=== PATIENT | male | born 1975 | race Caucasian/White ===

== ENCOUNTER 2019-01-01 11:19 | Emergency (ER) | payer OTHER ==
[2019-01-01] MEDS ORDERED: HYDROCODONE/APAP 10/325 TAB ONE (12:00)
[2019-01-01] MEDS ORDERED: KETOROLAC 30 MG/ML INJ ONE (12:00)
--- NOTE | 2019-01-01 12:03 | ER ---
Nurse's Notes [facility] Name: James Ann Age: 43 yrs Sex: Male : 1975 Arrival Date: 01/01/2019 Time: 11:23 Bed 11 Private MD: Mika De La Cruz Diagnosis: Radiculopathy, cervical region Presentation: 01/01 11:31 Presenting complaint: Patient states: I have been having bad pain in the left side of la1 my neck that radiates to my left elbow. The pain is so bad I cant sleep and havent since . Tried TENS, icy hot, advil, hot bathes. Nothing is helping. Transition of care: patient was not received from another setting of care. Onset of symptoms was January 01, 2019. Risk Assessment: Do you want to hurt yourself or someone else? Patient reports no desire to harm self or others. Initial Sepsis Screen: Does the patient meet any 2 criteria? No. Patient's initial sepsis screen is negative. Does the patient have a suspected source of infection? No. Patient's initial sepsis screen is negative. Care prior to arrival: None. 11:31 Method Of Arrival: Ambulatory la1 11:31 Acuity: SHAYY 4 la1 Historical: - Allergies: 11:32 No Known Allergies; la1 - PMHx: 11:32 None; la1 - Immunization history:: Adult Immunizations up to date. - Social history:: Smoking status: Patient uses tobacco products, smokes one pack cigarettes per day. - Ebola Screening: : No symptoms or risks identified at this time. Screenin:40 Abuse screen: Denies threats or abuse. Nutritional screening: No deficits noted. la1 Tuberculosis screening: No symptoms or risk factors identified. Fall Risk None identified. Assessment: 11:39 General: Appears in no apparent distress. Behavior is calm, cooperative. Pain: la1 Complains of pain in left posterior neck Pain radiates to left arm. Neuro: Level of Consciousness is awake, alert, obeys commands, Oriented to person, place, time, situation, Gait is steady, Facial symmetry appears normal, Pupils are PERRLA. Cardiovascular: Capillary refill < 3 seconds Patient's skin is warm and dry. GI: No signs and/or symptoms were reported involving the gastrointestinal system. : No signs and/or symptoms were reported regarding the genitourinary system. Vital Signs: 11:32 BP 120 / 80; Pulse 72; Resp 16; Temp 97.1; Pulse Ox 100% on R/A; Weight 136.08 kg; la1 Height 6 ft. 2 in. (187.96 cm); 11:32 Body Mass Index 38.52 (136.08 kg, 187.96 cm) la1 ED Course: 11:23 Patient arrived in ED. dl4 11:23 Mika De La Cruz MD is Private Physician. dl4 11:32 Triage completed. la1 11:32 Arm band placed on left wrist. la1 11:35 [facility]odi Alexandra [facility]C [facility]. kb 11:35 Glen Berg MD is Attending Physician. kb 11:40 Patient has correct armband on for positive identification. la1 12:17 Kobi Sampson RN is Primary Nurse. la1 12:18 No provider procedures requiring assistance completed. Patient did not have IV access la1 during this emergency room visit. Administered Medications: 12:02 Drug: [place] 10 mg-325 mg 1 tabs {Note: RASS= 1.} Route: PO; la1 12:18 Follow up: Response: No adverse reaction; RASS: Alert and Calm (0) la1 12:02 Drug: TORadol 30 mg Route: IM; Site: left gluteus; la1 12:17 Follow up: Response: No adverse reaction la1 Outcome: 12:02 Discharge ordered by MD. kb 12:18 Discharged to home ambulatory. la1 12:18 Condition: stable 12:18 Discharge instructions given to patient, Instructed on discharge instructions, follow up and referral plans. medication usage, Demonstrated understanding of instructions, follow-up care, medications, Prescriptions given X 2. 12:18 Patient left the ED. la1 Signatures: Codi Alexandra FNP-C FNP-Kobi Barreto, RN RN Seun Strong dl4
--- NOTE | 2019-01-01 12:04 | EDPHYS ---
Physician Documentation [facility] Name: James Ann Age: 43 yrs Sex: Male : 1975 Arrival Date: 01/01/2019 Time: 11:23 Bed 11 Private MD: Mika De La Cruz ED Physician Glen Berg HPI: 01/01 11:59 This 43 yrs old Male presents to ER via Ambulatory with complaints of Neck kb and Upper Back Pain. 11:59 The patient or guardian complains of pain, that is acute. The symptoms are located on kb the left posterior aspect of neck. Onset: The symptoms/episode began/occurred 4 day(s) ago. Context: The problem was sustained at work, The neck injury/problem resulted from from unknown cause. Associated signs and symptoms: The patient has no apparent associated signs or symptoms, The patient denies any alcohol use. The patient is not apparently intoxicated. No neurological symptoms were experienced by the patient prior to arrival in the emergency department. The pain radiates to the left arm. Modifying factors: The symptoms are alleviated by nothing. the symptoms are aggravated by movement. Severity of symptoms: At their worst the symptoms were moderate, in the emergency department the symptoms are unchanged. The patient has not experienced similar symptoms in the past. The patient has not recently seen a physician. Historical: - Allergies: 11:32 No Known Allergies; la1 - PMHx: 11:32 None; la1 - Immunization history:: Adult Immunizations up to date. - Social history:: Smoking status: Patient uses tobacco products, smokes one pack cigarettes per day. - Ebola Screening: : No symptoms or risks identified at this time. ROS: 11:58 Constitutional: Negative for fever, chills, and weight loss, Cardiovascular: Negative kb for chest pain, palpitations, and edema, Respiratory: Negative for shortness of breath, cough, wheezing, and pleuritic chest pain, Abdomen/GI: Negative for abdominal pain, nausea, vomiting, diarrhea, and constipation, Back: Negative for injury and pain, : Negative for injury, bleeding, discharge, and swelling, MS/Extremity: Negative for injury and deformity, Skin: Negative for injury, rash, and discoloration, Neuro: Negative for headache, weakness, numbness, tingling, and seizure. 11:58 Neck: Positive for pain with movement, pain at rest, of the left posterior aspect of neck. Exam: 11:58 Constitutional: This is a well developed, well nourished patient who is awake, alert, kb and in no acute distress. Head/Face: Normocephalic, atraumatic. ENT: Nares patent. No nasal discharge, no septal abnormalities noted. Tympanic membranes are normal and external auditory canals are clear. Oropharynx with no redness, swelling, or masses, exudates, or evidence of obstruction, uvula midline. Mucous membranes moist. Chest/axilla: Normal chest wall appearance and motion. Nontender with no deformity. No lesions are appreciated. Cardiovascular: Regular rate and rhythm with a normal S1 and S2. No gallops, murmurs, or rubs. Normal PMI, no JVD. No pulse deficits. Respiratory: Lungs have equal breath sounds bilaterally, clear to auscultation and percussion. No rales, rhonchi or wheezes noted. No increased work of breathing, no retractions or nasal flaring. Abdomen/GI: Soft, non-tender, with normal bowel sounds. No distension or tympany. No guarding or rebound. No evidence of tenderness throughout. Skin: Warm, dry with normal turgor. Normal color with no rashes, no lesions, and no evidence of cellulitis. MS/ Extremity: Pulses equal, no cyanosis. Neurovascular intact. Full, normal range of motion. Neuro: Awake and alert, GCS 15, oriented to person, place, time, and situation. Cranial nerves II-XII grossly intact. Motor strength 5/5 in all extremities. Sensory grossly intact. Cerebellar exam normal. Normal gait. 11:58 Neck: External neck: tenderness, that is mild, of the left posterior aspect of neck, C-spine: appears grossly normal, no vertebral tenderness, no crepitus. Vital Signs: 11:32 BP 120 / 80; Pulse 72; Resp 16; Temp 97.1; Pulse Ox 100% on R/A; Weight 136.08 kg; la1 Height 6 ft. 2 in. (187.96 cm); 11:32 Body Mass Index 38.52 (136.08 kg, 187.96 cm) la1 MDM: 11:44 Patient medically screened. kb 11:57 Data reviewed: vital signs, nurses notes. Data interpreted: Pulse oximetry: on room air kb is 100 %. Interpretation: normal. Counseling: I had a detailed discussion with the patient and/or guardian regarding: the historical points, exam findings, and any diagnostic results supporting the discharge/admit diagnosis, the need for outpatient follow up, a family practitioner, to return to the emergency department if symptoms worsen or persist or if there are any questions or concerns that arise at home. Administered Medications: 12:02 Drug: [place] 10 mg-325 mg 1 tabs {Note: RASS= 1.} Route: PO; la1 12:18 Follow up: Response: No adverse reaction; RASS: Alert and Calm (0) la1 12:02 Drug: TORadol 30 mg Route: IM; Site: left gluteus; la1 12:17 Follow up: Response: No adverse reaction la1 Disposition: 01/02 09:18 Co-signature as Attending Physician, Glen Berg MD I agree with the assessment and prem plan of care. Disposition: 01/01/19 12:02 Discharged to Home. Impression: Radiculopathy, cervical region. - Condition is Stable. - Discharge Instructions: Cervical Radiculopathy, [id number]. - Prescriptions for Prednisone 20 mg Oral Tablet - take 1 tablet by ORAL route once daily for 5 days; 5 tablet. orphenadrine citrate 100 mg Oral Tablet Sustained Release - take 1 tablet by ORAL route 2 times per day As needed; 20 tablet. - Medication Reconciliation Form, Thank You Letter, Antibiotic Education, Prescription Opioid Use form. - Follow up: Emergency Department; When: As needed; Reason: Worsening of condition. Follow up: Private Physician; When: 2 - 3 days; Reason: Recheck today's complaints, Continuance of care, Re-evaluation by your physician. Signatures: Codi Alexandra, BASILIA-C BASILIA-Glen Millan MD MD cha Attema, Lee RN RN la1 Corrections: (The following items were deleted from the chart) 01/01 12:18 12:02 01/01/2019 12:02 Discharged to Home. Impression: Radiculopathy, cervical region. la1 Condition is Stable. Forms are Medication Reconciliation Form, Thank You Letter, Antibiotic Education, Prescription Opioid Use. Follow up: Emergency Department; When: As needed; Reason: Worsening of condition. Follow up: Private Physician; When: 2 - 3 days; Reason: Recheck today's complaints, Continuance of care, Re-evaluation by your physician. kb
== END 2019-01-01 12:18 | disposition home or self-care (01) ==
LOC: ER 11:19
DX: M54.12 Radiculopathy, cervical region (principal); F17.210 Nicotine dependence, cigarettes, uncomplicated
CPT/HCPCS: 96372